=== PATIENT | female | born 1945 | race Caucasian/White ===

== ENCOUNTER 2020-04-21 21:36 | Emergency (ER) | payer BC, OTHER ==
[~2020-04-21] VITALS: Ht 162.6 cm; Wt 64.0 kg
[2020-04-21] MEDS ORDERED: SODIUM CHLORIDE 0.9% 1,000 ML IV ONE (22:30)
[2020-04-22] VITALS: BP 157/89
== END 2020-04-22 00:02 | disposition left against medical advice (07) ==
LOC: ER 22:09
DX: F10.129 Alcohol abuse with intoxication, unspecified (principal); R00.0 Tachycardia, unspecified; I10 Essential (primary) hypertension; Y90.9 Presence of alcohol in blood, level not specified
CPT/HCPCS: 93005; 99283; J7030